=== PATIENT | female | born 1975 | race Caucasian/White ===

== ENCOUNTER 2023-02-16 07:00 | Inpatient (IN) | payer BC ==
[~2023-02-16] VITALS: Ht 165.1 cm; Wt 112.9 kg
[2023-02-16] MEDS ORDERED: IBUP200T46 PO (07:11)
[2023-02-16 08:32] LABS: BASO # 0.1 10^3/uL (0.0-0.2); BASO % 0.3 % (0.0-1.0); EOS % 0.1 % (0.0-3.0); HEMATOCRIT 43.3 % (36.0-47.0); HEMOGLOBIN 14.4 g/dl (12.0-15.5); LYMPH % 5.4 % (24.0-44.0); MEAN CORPUSCULAR HEMOGLOBIN 30.2 pg (27.0-33.0); MEAN CORPUSCULAR HGB CONC 33.3 g/dl (32.0-36.5); MEAN CORPUSCULAR VOLUME 90.8 fl (80.0-96.0); MONO % 5.6 % (2.0-8.0); NEUTROPHILS # 15.6 10^3/uL (1.5-8.5); NEUTROPHILS % 87.6 % (36.0-66.0); PLATELET COUNT, AUTOMATED 272 10^3/uL (150-450); RED BLOOD COUNT 4.77 10^6/uL (4.00-5.40); WHITE BLOOD COUNT 17.8 10^3/uL (4.0-10.0)
[2023-02-16 08:53] LABS: BLOOD UREA NITROGEN 7 MG/DL (9-23); CALCIUM LEVEL 8.5 MG/DL (8.5-10.1); CARBON DIOXIDE LEVEL 25 MMOL/L (20-31); CHLORIDE LEVEL 102 MMOL/L (98-107); CREATININE FOR GFR 0.32 MG/DL (0.55-1.30); GLOMERULAR FILTRATION RATE > 60.0 (>58); GLUCOSE, FASTING 227 MG/DL (60-100); POTASSIUM SERUM 3.7 MMOL/L (3.5-5.1); SODIUM LEVEL 137 MMOL/L (136-145)
[2023-02-16 08:54] LABS: HCG, SERUM QUALITATIVE NEGATIVE (NEGATIVE)
[2023-02-16 09:03] LABS: ERYTHROCYTE SEDIMENTATION RATE 69 mm/hr (0-20)
[2023-02-16] MEDS ORDERED: CHLORTHALIDONE 25 MG TAB PO ONE (09:20)
[2023-02-16] MEDS ORDERED: MED REC IN PROGRESS XX SCH (10:10)
[2023-02-16] MEDS ORDERED: HOME MED LIST COMPLETE! XX SCH (10:20)
[2023-02-16] MEDS ORDERED: VANCOMYCIN HCL 2,000 MG in IV FLUID PLACE HOLDER 1 EA IV ONE ×2 (10:35→11:50)
[2023-02-16 10:40] LABS: APPEARANCE, URINE HAZY (CLEAR); BACTERIA, URINE AUTO 3+ (NEGATIVE); BILIRUBIN, URINE AUTO NEGATIVE (NEGATIVE); BLOOD, URINE BLOOD NEGATIVE (NEGATIVE); COLOR, URINE YELLOW (YELLOW); GLUCOSE, URINE (UA) AUTO 3+ mg/dL (NEGATIVE); KETONE, URINE AUTO 2+ mg/dL (NEGATIVE); LEUKOCYTE ESTERASE, URINE AUTO NEGATIVE (NEGATIVE); MUCUS, URINE SMALL (NEGATIVE); NITRITE, URINE AUTO POSITIVE (NEGATIVE); PROTEIN, URINE AUTO 2+ mg/dL (NEGATIVE); RBC, URINE AUTO 1 /HPF (0-3); SPECIFIC GRAVITY URINE AUTO 1.014 (1.002-1.035); SQUAMOUS EPITHELIAL CELL UR AU 4 /HPF (0-6); WBC, URINE AUTO 8 /HPF (0-3)
[2023-02-16] MEDS ORDERED: LABETALOL 100MG/20ML VIAL IV STA (10:50)
[2023-02-16] MEDS ORDERED: LEVEMIR (INSULIN DETEMIR) 1 UNITS/0.01ML SC ONE (11:00)
[2023-02-16] MEDS ORDERED: VANCOMYCIN HCL 1,000 MG, VIAL MATE ADAPTER 1 EACH in D5W 250 ML IV ONE ×12 (11:00→12:00)
[2023-02-16 11:27] LABS: RSV AMPLIFICATION NEGATIVE (NEGATIVE)
[2023-02-16] MEDS ORDERED: cloNIDine 0.2 MG TAB PO ONE (11:30)
[2023-02-16] MEDS ORDERED: GLUCOSE 4GM CHEW TABLET PO PRN (11:50)
[2023-02-16] MEDS ORDERED: DEXTROSE 50% 50ML SYRINGE IV PRN (11:50)
[2023-02-16] MEDS ORDERED: GLUCAGON INJ 1MG VIAL SC PRN (11:50)
[2023-02-16] MEDS ORDERED: hydrALAZINE 20MG/ML 1ML VIAL IV SCH (12:00)
[2023-02-16] MEDS: INSULIN LISPRO (NovoLOG) PER UNIT SC SCH ×2 (12:00→19:16)
[2023-02-16] MEDS: hydrALAZINE 20MG/ML 1ML VIAL IV SCH ×2 (12:00→15:55)
[2023-02-16] MEDS: METOPROLOL TART 25 MG TABLET PO SCH ×2 (12:35→18:50)
[2023-02-16 15:53] VITALS: BP 136/83; TEMP 98.4; O2SAT 98
[2023-02-16] MEDS ORDERED: INSULIN LISPRO (NovoLOG) PER UNIT SC SCH (21:00)
[2023-02-16 23:55] VITALS: BP 122/67; TEMP 96.7; O2SAT 96
[2023-02-17] VITALS (10 sets, daily range): BP systolic 111–159; BP diastolic 53–88; TEMP 97.2–99.2; O2SAT 93–99
[2023-02-17] MEDS: METOPROLOL TART 25 MG TABLET PO SCH ×2 (00:18→05:24)
[2023-02-17 05:34] LABS: BASO # 0.1 10^3/uL (0.0-0.2); BASO % 0.3 % (0.0-1.0); EOS # 0.1 10^3/uL (0.0-0.5); EOS % 0.5 % (0.0-3.0); HEMATOCRIT 40.2 % (36.0-47.0); HEMOGLOBIN 13.3 g/dl (12.0-15.5); LYMPH # 1.5 10^3/uL (1.5-5.0); LYMPH % 10.1 % (24.0-44.0); MEAN CORPUSCULAR HEMOGLOBIN 30.6 pg (27.0-33.0); MEAN CORPUSCULAR HGB CONC 33.1 g/dl (32.0-36.5); MEAN CORPUSCULAR VOLUME 92.6 fl (80.0-96.0); MONO # 1.5 10^3/uL (0.0-0.8); MONO % 10.1 % (2.0-8.0); NEUTROPHILS # 11.9 10^3/uL (1.5-8.5); NEUTROPHILS % 78.5 % (36.0-66.0); PLATELET COUNT, AUTOMATED 238 10^3/uL (150-450); RED BLOOD COUNT 4.34 10^6/uL (4.00-5.40); WHITE BLOOD COUNT 15.1 10^3/uL (4.0-10.0)
[2023-02-17 06:11] LABS: CALCIUM LEVEL 8.4 MG/DL (8.5-10.1); CREATININE FOR GFR 1.31 MG/DL (0.55-1.30); GLOMERULAR FILTRATION RATE 46.1 (>58); HDL CHOLESTEROL 35.5 MG/DL (>40); LDL CHOLESTEROL 88.3 MG/DL (<100); NON-HDL-C 106.5 MG/DL; POTASSIUM SERUM 3.9 MMOL/L (3.5-5.1)
[2023-02-17] MEDS ORDERED: LIDOCAINE 2% 100MG/5ML SDV (FOR ANES.) As Ordered ONE (07:19)
[2023-02-17] MEDS ORDERED: MIDAZOLAM INJ 2MG/2ML VIAL As Ordered ONE (07:20)
[2023-02-17] MEDS ORDERED: propofoL 500 MG/50 ML VIAL As Ordered ONE (07:20)
[2023-02-17] MEDS ORDERED: fentaNYL 100 MCG/2 ML INJECTION As Ordered ONE (07:20)
[2023-02-17] MEDS: INSULIN LISPRO (NovoLOG) PER UNIT SC SCH ×4 (07:30→20:14)
[2023-02-17] MEDS ORDERED: LIDOCAINE 1% MDV 20ML VIAL As Ordered ONE (07:48)
[2023-02-17] MEDS ORDERED: D5W/0.45% SODIUM CHLORIDE 1,000 ML IV SCH (08:15)
[2023-02-17] MEDS ORDERED: MORPHINE 2 MG/ML 1ML VIAL IV PRN (10:40)
[2023-02-17] MEDS ORDERED: SENOKOT S TAB PO PRN (10:40)
[2023-02-17] MEDS ORDERED: VANCOMYCIN HCL 1,000 MG, VIAL MATE ADAPTER 1 EACH in D5W 250 ML IV SCH (10:40)
[2023-02-17] MEDS ORDERED: BISACODYL 5MG TAB PO PRN (10:40)
[2023-02-17] MEDS ORDERED: MIRALAX *UNIT DOSE* 17GM PACKET PO PRN (10:40)
[2023-02-17] MEDS ORDERED: PERCOCET 5MG/325MG TAB PO PRN (10:40)
[2023-02-17] MEDS ORDERED: MOM 30ML SUSPENSION UDC PO PRN (10:40)
[2023-02-17] MEDS ORDERED: NS 1,000 ML IV ONE (10:40)
[2023-02-17] MEDS ORDERED: NS 1,000 ML IV SCH (10:40)
[2023-02-17 11:25] LABS: VANCOMYCIN RANDOM 8.3 UG/ML
[2023-02-17] MEDS: VANCOMYCIN HCL 1,000 MG, VIAL MATE ADAPTER 1 EACH in D5W 250 ML IV SCH ×2 (12:17→23:39)
[2023-02-17] MEDS ORDERED: VANCOMYCIN HCL 500 MG in D5W MINI-BAG PLUS 100 ML IV ONE (13:00)
[2023-02-17] MEDS ORDERED: SODIUM CHLORIDE 0.9% 1000ML IV ONE (13:05)
[2023-02-17] MEDS: NS 1,000 ML IV SCH (16:29)
[2023-02-17] MEDS: PERCOCET 5MG/325MG TAB PO PRN (20:22)
[2023-02-17] MEDS ORDERED: LEVEMIR (INSULIN DETEMIR) 1 UNITS/0.01ML SC SCH (21:00)
[2023-02-17 22:39] LABS: CALCIUM LEVEL 8.2 MG/DL (8.5-10.1); CREATININE FOR GFR 1.6 MG/DL (0.55-1.30); GLOMERULAR FILTRATION RATE 36.6 (>58); POTASSIUM SERUM 3.7 MMOL/L (3.5-5.1)
[2023-02-18] MEDS: NS 1,000 ML IV SCH (02:54)
[2023-02-18 05:23] VITALS: BP 148/85; TEMP 98.2; O2SAT 99
[2023-02-18 06:44] LABS: BASO # 0.1 10^3/uL (0.0-0.2); BASO % 0.6 % (0.0-1.0); EOS # 0.1 10^3/uL (0.0-0.5); EOS % 0.9 % (0.0-3.0); HEMATOCRIT 42.7 % (36.0-47.0); HEMOGLOBIN 13.6 g/dl (12.0-15.5); LYMPH # 1.5 10^3/uL (1.5-5.0); MEAN CORPUSCULAR HEMOGLOBIN 30.3 pg (27.0-33.0); MEAN CORPUSCULAR HGB CONC 31.9 g/dl (32.0-36.5); MEAN CORPUSCULAR VOLUME 95.1 fl (80.0-96.0); MONO # 1.1 10^3/uL (0.0-0.8); MONO % 10.8 % (2.0-8.0); NEUTROPHILS # 7.2 10^3/uL (1.5-8.5); NEUTROPHILS % 72.1 % (36.0-66.0); PLATELET COUNT, AUTOMATED 213 10^3/uL (150-450); RED BLOOD COUNT 4.49 10^6/uL (4.00-5.40)
[2023-02-18 07:12] LABS: CALCIUM LEVEL 8.1 MG/DL (8.5-10.1); CREATININE FOR GFR 1.64 MG/DL (0.55-1.30); GLOMERULAR FILTRATION RATE 35.6 (>58); POTASSIUM SERUM 3.9 MMOL/L (3.5-5.1)
[2023-02-18] MEDS: INSULIN LISPRO (NovoLOG) PER UNIT SC SCH ×4 (08:28→21:00)
[2023-02-18] MEDS: VANCOMYCIN HCL 750 MG, VIAL MATE ADAPTER 1 EACH in D5W 250 ML IV SCH (12:52)
[2023-02-18 14:00] VITALS: BP 161/58; TEMP 97.3; O2SAT 99
[2023-02-18] MEDS ORDERED: METOPROLOL TART 25 MG TABLET PO ONE (15:45)
[2023-02-18 21:00] VITALS: BP 154/68; TEMP 97.7; O2SAT 96
[2023-02-18] MEDS: METOPROLOL TART 25 MG TABLET PO SCH (21:29)
[2023-02-18] MEDS: LEVEMIR (INSULIN DETEMIR) 1 UNITS/0.01ML SC SCH (21:30)
[2023-02-19] MEDS: VANCOMYCIN HCL 750 MG, VIAL MATE ADAPTER 1 EACH in D5W 250 ML IV SCH (00:34)
[2023-02-19 06:00] VITALS: BP 144/72; TEMP 98.1; O2SAT 99
[2023-02-19 06:25] LABS: BASO # 0.1 10^3/uL (0.0-0.2); BASO % 0.6 % (0.0-1.0); EOS # 0.1 10^3/uL (0.0-0.5); EOS % 1.4 % (0.0-3.0); HEMATOCRIT 39.6 % (36.0-47.0); LYMPH # 1.6 10^3/uL (1.5-5.0); LYMPH % 16.4 % (24.0-44.0); MEAN CORPUSCULAR HEMOGLOBIN 30.5 pg (27.0-33.0); MEAN CORPUSCULAR HGB CONC 32.8 g/dl (32.0-36.5); MONO # 1.1 10^3/uL (0.0-0.8); MONO % 10.7 % (2.0-8.0); NEUTROPHILS # 6.9 10^3/uL (1.5-8.5); NEUTROPHILS % 70.5 % (36.0-66.0); PLATELET COUNT, AUTOMATED 263 10^3/uL (150-450); RED BLOOD COUNT 4.26 10^6/uL (4.00-5.40); WHITE BLOOD COUNT 9.8 10^3/uL (4.0-10.0)
[2023-02-19 06:59] LABS: CALCIUM LEVEL 9.2 MG/DL (8.5-10.1); CREATININE FOR GFR 1.67 MG/DL (0.55-1.30); GLOMERULAR FILTRATION RATE 34.9 (>58)
[2023-02-19] MEDS ORDERED: LevoFLOXacin 750 MG TABLET PO SCH (07:10)
[2023-02-19] MEDS: INSULIN LISPRO (NovoLOG) PER UNIT SC SCH ×4 (07:49→20:57)
[2023-02-19] MEDS: LevoFLOXacin 750 MG TABLET PO SCH (07:49)
[2023-02-19] MEDS: LACTOBACILLUS ACIDOPHILUS CAP (BACID) PO SCH ×4 (07:49→21:05)
[2023-02-19] MEDS: DOXYCYCLINE HYCLATE 100MG TABLET PO SCH ×2 (08:54→21:05)
[2023-02-19] MEDS: METOPROLOL TART 25 MG TABLET PO SCH ×2 (08:54→21:05)
[2023-02-19] MEDS: ASPIRIN 81MG ENTERIC TABLET PO SCH (08:54)
[2023-02-19 14:00] VITALS: BP 166/96; TEMP 97.9; O2SAT 97
[2023-02-19] MEDS: NS 1,000 ML IV SCH (18:05)
[2023-02-19] MEDS ORDERED: ATORVASTATIN 20 MG TAB PO SCH (21:00)
[2023-02-19 21:04] VITALS: BP 162/82; TEMP 97.7; O2SAT 98
[2023-02-19] MEDS: LEVEMIR (INSULIN DETEMIR) 1 UNITS/0.01ML SC SCH (21:04)
[2023-02-20] MEDS: NS 1,000 ML IV SCH ×2 (01:51→09:11)
[2023-02-20] MEDS: LevoFLOXacin 750 MG TABLET PO SCH (05:34)
[2023-02-20 05:49] LABS: BASO # 0.1 10^3/uL (0.0-0.2); BASO % 0.6 % (0.0-1.0); EOS # 0.1 10^3/uL (0.0-0.5); EOS % 1.3 % (0.0-3.0); HEMATOCRIT 37.2 % (36.0-47.0); HEMOGLOBIN 12.2 g/dl (12.0-15.5); LYMPH # 1.9 10^3/uL (1.5-5.0); LYMPH % 18.7 % (24.0-44.0); MEAN CORPUSCULAR HEMOGLOBIN 30.1 pg (27.0-33.0); MEAN CORPUSCULAR HGB CONC 32.8 g/dl (32.0-36.5); MEAN CORPUSCULAR VOLUME 91.9 fl (80.0-96.0); MONO # 1.1 10^3/uL (0.0-0.8); MONO % 11.1 % (2.0-8.0); NEUTROPHILS % 67.7 % (36.0-66.0); PLATELET COUNT, AUTOMATED 274 10^3/uL (150-450); RED BLOOD COUNT 4.05 10^6/uL (4.00-5.40); WHITE BLOOD COUNT 10.3 10^3/uL (4.0-10.0)
[2023-02-20 06:00] VITALS: BP 149/80; TEMP 97.5; O2SAT 97
[2023-02-20 06:02] LABS: INR 1.17; PARTIAL THROMBOPLASTIN TIME 32.2 SECONDS (24.8-34.2); PROTHROMBIN TIME 15.1 SECONDS (12.5-14.5)
[2023-02-20 06:08] LABS: CALCIUM LEVEL 8.3 MG/DL (8.5-10.1); CREATININE FOR GFR 1.58 MG/DL (0.55-1.30); GLOMERULAR FILTRATION RATE 37.2 (>58); MAGNESIUM LEVEL 1.6 MG/DL (1.8-2.4); POTASSIUM SERUM 4.1 MMOL/L (3.5-5.1)
[2023-02-20 08:05] VITALS: BP 149/80
[2023-02-20] MEDS: LACTOBACILLUS ACIDOPHILUS CAP (BACID) PO SCH ×2 (08:05→12:09)
[2023-02-20] MEDS: ASPIRIN 81MG ENTERIC TABLET PO SCH (08:05)
[2023-02-20] MEDS: METOPROLOL TART 25 MG TABLET PO SCH (08:05)
[2023-02-20] MEDS: INSULIN LISPRO (NovoLOG) PER UNIT SC SCH ×2 (08:06→12:10)
[2023-02-20] MEDS: DOXYCYCLINE HYCLATE 100MG TABLET PO SCH (08:06)
[2023-02-20] MEDS ORDERED: MAGNESIUM OXIDE 400MG TAB (MAG-OX) PO ONE (08:15)
[2023-02-20] MEDS ORDERED: METO1TAB87 PO (10:37)
[2023-02-20] MEDS ORDERED: PEN1MIS21 SC (10:37)
[2023-02-20] MEDS ORDERED: AMOX875T2 PO (10:37)
[2023-02-20] MEDS ORDERED: INSU100I38 SQ (10:37)
[2023-02-20] MEDS ORDERED: GLUC1TES2 XX (10:37)
[2023-02-20] MEDS ORDERED: LANC30MI XX (10:37)
[2023-02-20] MEDS ORDERED: BLOOKIT21 XX (10:37)
[2023-02-20] MEDS ORDERED: NOVOINJ3 SC (10:37)
[2023-02-20] MEDS ORDERED: ATOR1TAB21 PO (10:37)
[2023-02-20] MEDS ORDERED: AMLO1TAB25 PO (10:37)
[2023-02-20] MEDS ORDERED: ASPI81TAEC PO (10:37)
[2023-02-20] MEDS ORDERED: ALCOPAD25 TOP (10:37)
[2023-02-20 14:00] VITALS: BP 176/100; TEMP 98.2; O2SAT 100
[2023-02-20] MEDS: PERCOCET 5MG/325MG TAB PO PRN (14:21)
[2023-02-20 15:02] VITALS: BP 164/80
== END 2023-02-20 16:45 | disposition home or self-care (01) | DRG 710 ==
LOC: M ED 07:00 → M ED INP 10:50 → M PCU 15:42 → M MSPAV 02-17 20:59
PROVIDERS: ADMIT General Practice; ATTEND Family Medicine
PROC: 0Y6R0Z0 Detachment at Right 2nd Toe, Complete, Open Approach (ICD-10-PCS; principal; 2023-02-17 08:30)
DX: A41.9 Sepsis, unspecified organism (principal); N17.9 Acute kidney failure, unspecified; E11.22 Type 2 diabetes mellitus with diabetic chronic kidney disease; M86.271 Subacute osteomyelitis, right ankle and foot; E11.51 Type 2 diabetes mellitus with diabetic peripheral angiopathy without gangrene; Z68.41 Body mass index [BMI] 40.0-44.9, adult; E83.42 Hypomagnesemia; I16.0 Hypertensive urgency; Z79.4 Long term (current) use of insulin; Z79.899 Other long term (current) drug therapy; Z79.82 Long term (current) use of aspirin; E66.9 Obesity, unspecified; I10 Essential (primary) hypertension

== ENCOUNTER → 2023-08-14 | Outpatient (CLI) | payer BC ==
[~2023-08-14] MED LIST: ALCOPAD25 TOP; AMLO1TAB25 PO; AMOX875T2 PO; ASPI81TAEC PO; ATOR1TAB21 PO; BLOOKIT21 XX; GLUC1TES2 XX; IBUP200T46 PO; INSU100I38 SQ; LANC30MI XX; METO1TAB87 PO; NOVOINJ3 SC; PEN-308 SC
== END ==
LOC: M WHC 07:32
PROVIDERS: ATTEND Nurse Practitioner Family
DX: Z12.31 Encounter for screening mammogram for malignant neoplasm of breast (principal)

== ENCOUNTER → 2023-08-30 | Outpatient (CLI) | payer BC | LOC: M WHC 07:35 | PROVIDERS: ATTEND Nurse Practitioner Family | DX: R92.8 Other abnormal and inconclusive findings on diagnostic imaging of breast (principal); N60.02 Solitary cyst of left breast ==

== ENCOUNTER 2024-03-14 13:51 | Emergency (ER) | payer BC ==
[~2024-03-14] VITALS: Ht 165.1 cm; Wt 96.7 kg
[2024-03-14] MEDS ORDERED: ASPI81CH33 PO (14:40)
[2024-03-14] MEDS ORDERED: VITAD400CA PO (14:40)
[2024-03-14 18:14] LABS: BASO # 0.1 10^3/uL (0.0-0.2); BASO % 0.6 % (0.0-1.0); EOS % 0.4 % (0.0-3.0); HEMATOCRIT 43.9 % (36.0-47.0); HEMOGLOBIN 14.5 g/dl (12.0-15.5); MEAN CORPUSCULAR HEMOGLOBIN 30.9 pg (27.0-33.0); MEAN CORPUSCULAR VOLUME 93.4 fl (80.0-96.0); MONO # 0.5 10^3/uL (0.0-0.8); NEUTROPHILS # 7.7 10^3/uL (1.5-8.5); NEUTROPHILS % 74.8 % (36.0-66.0); WHITE BLOOD COUNT 10.3 10^3/uL (4.0-10.0)
[2024-03-14 18:45] LABS: BLOOD UREA NITROGEN 15 MG/DL (9-23); CALCIUM LEVEL 9.4 MG/DL (8.5-10.1); CARBON DIOXIDE LEVEL 26 MMOL/L (20-31); CHLORIDE LEVEL 106 MMOL/L (98-107); CREATININE FOR GFR 0.58 MG/DL (0.55-1.30); GLOMERULAR FILTRATION RATE > 60.0 (>58); GLUCOSE, FASTING 88 MG/DL (60-100); POTASSIUM SERUM 3.9 MMOL/L (3.5-5.1); SODIUM LEVEL 138 MMOL/L (136-145)
[2024-03-14 18:55] LABS: ERYTHROCYTE SEDIMENTATION RATE 26 mm/hr (0-20)
[2024-03-14] MEDS ORDERED: DOXY-323 PO (19:07)
[2024-03-14] MEDS ORDERED: KETO2CR TOP (19:07)
[2024-03-14 19:24] VITALS: BP 146/72; TEMP 98; O2SAT 98
== END 2024-03-14 19:26 | disposition home or self-care (01) ==
LOC: M ED 13:51
DX: L30.4 Erythema intertrigo (principal); E11.9 Type 2 diabetes mellitus without complications; I10 Essential (primary) hypertension; Z89.421 Acquired absence of other right toe(s)

== ENCOUNTER → 2024-03-20 | Outpatient (CLI) | payer BC ==
[~2024-03-20] MED LIST changes: +ASPI81CH33 PO; +DOXY-323 PO; +KETO2CR TOP; +VITAD400CA PO
== END ==
LOC: M WHC 07:13
PROVIDERS: ATTEND Nurse Practitioner Family
DX: R92.8 Other abnormal and inconclusive findings on diagnostic imaging of breast (principal)

== ENCOUNTER → 2024-03-26 | Outpatient (REF) | payer BC | LOC: M LAB REF 12:57 | PROVIDERS: ATTEND Podiatrist | DX: L03.031 Cellulitis of right toe (principal) ==

== ENCOUNTER → 2024-04-21 | Outpatient (REF) | payer BC ==
[2024-04-21 14:44] LABS: ALBUMIN 3.4 G/DL (3.2-5.2); ALKALINE PHOSPHATASE 43 U/L (46-116); ALT/SGPT 15 U/L (7.0-40); AST/SGOT < 8 U/L (<34); BILIRUBIN,TOTAL 0.7 MG/DL (0.3-1.2); BLOOD UREA NITROGEN 25 MG/DL (9-23); CALCIUM LEVEL 8.6 MG/DL (8.5-10.1); CARBON DIOXIDE LEVEL 28 MMOL/L (20-31); CHLORIDE LEVEL 106 MMOL/L (98-107); CHOLESTEROL LEVEL 182 MG/DL (<200); CHOLESTEROL RISK RATIO 3.35 (<5); CREATININE FOR GFR 0.72 MG/DL (0.55-1.30); GLOMERULAR FILTRATION RATE > 60.0 (>51); GLUCOSE, FASTING 113 MG/DL (60-100); HDL CHOLESTEROL 54.2 MG/DL (>40); NON-HDL-C 127.8 MG/DL; POTASSIUM SERUM 4.4 MMOL/L (3.5-5.1); SODIUM LEVEL 138 MMOL/L (136-145); TOTAL 25(OH) VITAMIN D 33.2 NG/ML (20.0-100.0); TOTAL PROTEIN 6.4 G/DL (5.7-8.2); TRIGLYCERIDES LEVEL 84 MG/DL (<150)
[2024-04-21 15:21] LABS: HEMOGLOBIN A1c 5.6 % (4.0-6.0)
== END ==
LOC: M LABDRWAD 12:44
PROVIDERS: ATTEND Nurse Practitioner Family
DX: E11.69 Type 2 diabetes mellitus with other specified complication (principal); I10 Essential (primary) hypertension; E55.9 Vitamin D deficiency, unspecified

== ENCOUNTER → 2024-08-12 | Outpatient (REF) | payer BC ==
[~2024-08-12] MED LIST changes: -DOXY-323 PO; +DOXY-441 PO
== END ==
LOC: M LAB REF 17:01
PROVIDERS: ATTEND Nurse Practitioner Family
DX: E11.621 Type 2 diabetes mellitus with foot ulcer (principal)

== ENCOUNTER → 2024-09-23 | Outpatient (CLI) | payer BC | LOC: M WHC 07:28 | PROVIDERS: ATTEND Nurse Practitioner Family | DX: R92.8 Other abnormal and inconclusive findings on diagnostic imaging of breast (principal); R92.323 Mammographic fibroglandular density, bilateral breasts | CPT/HCPCS: 77066; G0279 ==

== ENCOUNTER → 2024-11-03 | Outpatient (REF) | payer BC | LOC: M LAB REF 11:00 | PROVIDERS: ATTEND Podiatrist | DX: L03.032 Cellulitis of left toe (principal) ==

== ENCOUNTER → 2024-11-13 | Outpatient (CLI) | payer BC | LOC: M RAD 15:10 | PROVIDERS: ATTEND Nurse Practitioner Family | DX: I70.219 Atherosclerosis of native arteries of extremities with intermittent claudication, unspecified extremity (principal) ==

== ENCOUNTER → 2024-11-25 | Outpatient (REF) | payer BC ==
[2024-11-25 19:03] LABS: ALBUMIN 3.8 G/DL (3.2-5.2); CALCIUM LEVEL 8.9 MG/DL (8.5-10.1); CREATININE FOR GFR 0.83 MG/DL (0.55-1.30); GLOMERULAR FILTRATION RATE 85.8 (>51); PHOSPHORUS LEVEL 4.5 MG/DL (2.5-4.9); POTASSIUM SERUM 4.9 MMOL/L (3.5-5.1)
== END ==
LOC: M LABDRWAD 17:08
PROVIDERS: ATTEND Podiatrist
DX: Z51.81 Encounter for therapeutic drug level monitoring (principal)

== ENCOUNTER → 2025-04-01 | Outpatient (REF) | payer BC | LOC: M LAB REF 10:25 | PROVIDERS: ATTEND Podiatrist | DX: L03.119 Cellulitis of unspecified part of limb (principal) ==

== ENCOUNTER → 2025-06-24 | Outpatient (REF) | payer BC ==
[2025-06-24 17:57] LABS: ALT/SGPT 21 U/L (7.0-40); AST/SGOT 18 U/L (<34); CALCIUM LEVEL 8.8 MG/DL (8.5-10.1); CARBON DIOXIDE LEVEL 28 MMOL/L (20-31); CHLORIDE LEVEL 103 MMOL/L (98-107); CHOLESTEROL LEVEL 205 MG/DL (<200); CHOLESTEROL RISK RATIO 2.77 (<5); CREATININE FOR GFR 0.67 MG/DL (0.55-1.30); GLOMERULAR FILTRATION RATE > 90.0 (>51); LDL CHOLESTEROL 119.0 MG/DL (<100); NON-HDL-C 131.2 MG/DL; POTASSIUM SERUM 4.8 MMOL/L (3.5-5.1); SODIUM LEVEL 139 MMOL/L (136-145); TRIGLYCERIDES LEVEL 61 MG/DL (<150)
[2025-06-24 17:59] LABS: TOTAL 25(OH) VITAMIN D 41.7 NG/ML (20.0-100.0)
[2025-06-24 18:13] LABS: CREATININE, URINE 11.8 MG/DL; MALB URINE SIEMENS < 3.0 MG/L
[2025-06-24 18:40] LABS: ESTIMATED AVERAGE GLUCOSE 117.0 MG/DL (60-110)
== END ==
LOC: M LABDRWAD 17:10
PROVIDERS: ATTEND Nurse Practitioner Family
DX: E11.69 Type 2 diabetes mellitus with other specified complication (principal); I10 Essential (primary) hypertension; E55.9 Vitamin D deficiency, unspecified